=== PATIENT | female | born 1960 | race African-American/Black ===

== ENCOUNTER 2024-10-17 06:46 | Day surgery (SDC) | payer BC, OTHER ==
[2024-10-09 13:38] VITALS: BMI 24.6
[2024-10-17 12:35] VITALS: TEMP 98
[2024-10-17 13:06] VITALS: RESP 18
[2024-10-17 13:16] VITALS: BP 121/58; PULSE 72
== END 2024-10-17 13:29 | disposition home or self-care (01) ==
LOC: JASU-ENDO 06:46
PROVIDERS: ATTEND Internal Medicine Gastroenterology
PROC: 0DB78ZX Excision of Stomach, Pylorus, Via Natural or Artificial Opening Endoscopic, Diagnostic (ICD-10-PCS; 2024-10-17)
PROC: 0DB68ZX Excision of Stomach, Via Natural or Artificial Opening Endoscopic, Diagnostic (ICD-10-PCS; 2024-10-17)
PROC: 0DJD8ZZ Inspection of Lower Intestinal Tract, Via Natural or Artificial Opening Endoscopic (ICD-10-PCS; 2024-10-17)
PROC: 0DB98ZX Excision of Duodenum, Via Natural or Artificial Opening Endoscopic, Diagnostic (ICD-10-PCS; principal; 2024-10-17 11:00)
DX: Z12.11 Encounter for screening for malignant neoplasm of colon (principal); K64.8 Other hemorrhoids; K57.30 Diverticulosis of large intestine without perforation or abscess without bleeding; K92.1 Melena; K29.50 Unspecified chronic gastritis without bleeding; B96.81 Helicobacter pylori [H. pylori] as the cause of diseases classified elsewhere
CPT/HCPCS: 88305-TC; 88342-TC